=== PATIENT | male | born 1970 | race Caucasian/White ===

== ENCOUNTER 2021-01-28 16:04 | Emergency (ER) | payer MEDICAID, SELFPAY ==
--- NOTE | ~2021-01-28 | XR_ITS ---
EXAMINATION: XR CHEST CLINICAL INFORMATION: Chest pain COMPARISON: None TECHNIQUE: Frontal view of the chest was obtained. FINDINGS: Normal symmetric lung volumes. No parenchymal consolidation. No pleural effusion. No pneumothorax. Cardiomediastinal silhouette and pulmonary vascularity are within normal limits. No acute osseous abnormalities. XR/XR chest 1V IMPRESSION: Unremarkable examination.
--- NOTE | ~2021-01-28 | CT_ITS ---
EXAMINATION: CT ANGIOGRAM CHEST WITH AND WITHOUT CONTRAST (CT PULMONARY ANGIOGRAM FOR PE) CLINICAL INFORMATION: Elevated D-dimer. Question pulmonary embolism. COMPARISON: Chest radiograph done earlier the same day. TECHNIQUE: Prior to contrast administration, noncontrast localization images were obtained. Subsequently, multidetector volumetric imaging was performed from the thoracic inlet to below the diaphragms following the administration of 71 mL Omnipaque 350 intravenous contrast. No contrast reaction reported. Sagittal, coronal, and MIP oblique sagittal reformatted images were obtained on the CT workstation, uploaded to PACS, and reviewed. This CT examination was performed using dose optimization techniques as appropriate, variously including the following: *Automated exposure control. *Adjustment of mA and/or kV according to patient size (this includes techniques or standardized protocols for targeted exams where dose is matched to indication/reason for exam; i.e. extremities or head). *Use of iterative reconstruction technique. Total exam dose-length product 359 mGy-cm. FINDINGS: QUALITY OF STUDY/CONTRAST BOLUS: Satisfactory. PULMONARY ARTERIES: No central or segmental pulmonary emboli. THORACIC AORTA: No aneurysm or dissection. LUNG: Within the medial aspect of the left lung apex there is a pleural-based, spiculated mass measuring 1.6 x 2.3 x 1.7 cm (AP x ML x CC). There is a noncalcified right middle lobe pulmonary nodule measuring 0.8 cm (axial image 259/501). There is an irregular, spiculated subpleural nodule along the right major fissure measuring up to 1.0 cm (axial image 242/501). There are additional bilateral pulmonary nodules measuring up to 0.2 cm. No confluent airspace consolidation. PLEURA: No pleural effusion or pneumothorax. MEDIASTINUM: No cardiomegaly. No pericardial effusion. Significantly enlarged left hilar lymph nodes with the largest anteriorly measuring up to 3.6 x 2.8 cm. Enlarged superior mediastinal lymph nodes with the largest anterior to the left mainstem bronchus measuring 1.8 x 2.8 cm. Enlarged right hilar lymph node measuring up to 1.8 x 1.7 cm. No evidence of septal bowing or right heart strain. CHEST WALL/AXILLA: No axillary or internal mammary lymphadenopathy. OSSEOUS STRUCTURES: No acute or suspicious osseous abnormality. UPPER ABDOMEN: Mild asymmetric thickening of the left adrenal gland. Status post cholecystectomy. Otherwise, the visualized upper abdominal structures are unremarkable. No reflux of contrast into the hepatic veins to suggest elevated right heart pressures. CT/CT angio chest PE protocol IMPRESSION: 1. No acute pulmonary embolism. 2. Irregular, spiculated pleural-based mass within the medial aspect of the left lung apex measuring up to 2.3 cm. Findings are concerning for a neoplastic lesion. Additional irregular, spiculated subpleural nodule along the right major fissure measuring up to 1.0 cm. Right middle lobe 0.8 cm pulmonary nodule. Multiple additional bilateral 0.2 cm pulmonary nodules. 3. Significantly enlarged left hilar and superior mediastinal lymphadenopathy as well as slightly less prominent right hilar lymphadenopathy, concerning for metastatic spread of disease. 4. Mild asymmetric thickening of the left adrenal gland. Given the possibility of a primary pulmonary neoplasm, metastatic disease could be considered. VTE: Negative. This critical result was discussed with LYSSA Tim at 7:08 PM on 01/28/2021 and it was ascertained that the content and urgency of the report was understood at the time of direct communication.
[2021-01-28 16:10] VITALS: BP 157/96; PULSE 82; RESP 16; TEMP 36.7; O2SAT 98; BMI 32.1
--- NOTE | 2021-01-28 16:17 | ECG_ITS ---
Test Reason : CHEST PAIN Blood Pressure : / mmHG Vent. Rate : 075 BPM Atrial Rate : 075 BPM P-R Int : 160 ms QRS Dur : 076 ms QT Int : 370 ms P-R-T Axes : 052 -01 034 degrees QTc Int : 413 ms Normal sinus rhythm Normal ECG No previous ECGs available Referred By: Generic ED Physician Electronically Signed By:OBDULIO AGUILAR
[2021-01-28 17:06] LABS: MANUAL DIFF FLAG NO
[2021-01-28 17:07] LABS: Basophils Absolute Auto 0.1 X10*3/uL (0.0-0.2); Basophils Percent Auto 0.7 % (0-2); Eosinophils Absolute Auto 0.4 X10*3/uL (0.0-0.4); Eosinophils Percent Auto 5.6 % (0-4); Hematocrit 42.7 % (42-52); Hemoglobin 14.4 g/dl (14.0-18.0); Imm Gran Abs Auto 0.02 X10*3/uL (0.00-0.03); Imm Gran Pct Auto 0.3 % (0.0-0.4); Lymphocytes Absolute Auto 2.4 X10*3/uL (1.2-4.9); Lymphocytes Percent Auto 31.2 % (20-40); Mean Corpuscular HGB Conc 33.7 g/dl (31.0-36.0); Mean Corpuscular Hemoglobin 29.3 pg (27.0-33.0); Mean Corpuscular Volume 86.8 fL (80-98); Mean Platelet Volume 11.4 fL (9.4-12.4); Monocytes Absolute Auto 0.7 X10*3/uL (0.1-1.2); Monocytes Percent Auto 8.6 % (2-11); Neutrophils Absolute Auto 4.1 X10*3/uL (2.0-8.3); Neutrophils Percent Auto 53.6 % (45-73); Platelet Count 254 X10*3/uL (160-400); Red Blood Count 4.92 X10*6/uL (4.60-5.80); Red Cell Distribution Width 13.7 % (11.0-16.0); White Blood Count 7.7 X10*3/uL (4.8-10.8)
[2021-01-28 17:11] VITALS: BP 127/80; PULSE 77; RESP 16; TEMP 36.6; O2SAT 96
--- NOTE | 2021-01-28 17:20 | ED.CHESTPAIN ---
HPI - Chest Pain General Chief Complaint: Chest Pain Stated Complaint: chest pain Time Seen by Provider: 01/28/21 17:17 Source: patient Mode of arrival: ambulatory Limitations: no limitations History of Present Illness HPI narrative: Patient presents to the ED for right-sided chest pain that occurred yesterday intermittently. Patient states right-sided chest pain occurred after trying to climb up a truck and overusing his right upper extremity. Patient denies any shortness of breath, coughing up blood, fever, chills, swelling of lower extremity, recent trauma, recent surgery, history of drug use, history of family history of heart attack less than 50, history of blood clots, or any history of estrogen hormone use. Patient presently denies any chest pain. Patient states he last had chest pain around 08:00 this morning. Related Data Allergies Allergy/AdvReac Type Severity Reaction Status Date / Time No Known Allergies Allergy Unverified 07/27/20 17:03 [No Known Allergies*] Review of Systems Review of Systems: Yes all other systems are reviewed and are negative Constitutional: Constitutional: Reports as per HPI and Reports no additional constitutional complaints Eyes: Eyes: Reports as per HPI and Reports no additional eye complaints ENT: Reports system reviewed and no additional complaints, except as documented and Reports as per HPI Cardiovascular: Cardiovascular: Reports as per HPI, Reports no additional cardiovascular complaints and Reports chest pain Respiratory: Respiratory: Reports as per HPI and Reports no additional respiratory complaints Gastrointestinal: Gastrointestinal: Reports as per HPI and Reports no additional gastrointestinal complaints Genitourinary: Genitourinary: Reports no additional male genitourinary complaints and Reports as per HPI Musculoskeletal: Musculoskeletal: Reports no additional musculoskeletal complaints and Reports as per HPI Neurologic: Reports system reviewed and no additional complaints, except as documented and Reports as per HPI Psychiatric: Psychiatric: Reports no additional psychiatric complaints and Reports as per HPI PMF Past Medical History Medical History (Updated 01/29/21 @ 00:01 by Background Julienne) DVT (deep venous thrombosis) Non-Hodgkin lymphoma in remission Thrombosis Social History Social History Alcohol intake: never Smoking Status: Current every day smoker Use of substances other than those prescribed or required for medical reasons: No Advance Directives: No Advance Directives Information Provided: No Physical Exam Vital Signs: Vital Signs: Last Vital Signs Temp 98 F 01/28/21 18:00 Pulse 74 01/28/21 18:00 Resp 16 01/28/21 18:00 BP 137/88 01/28/21 18:00 Pulse Ox 96 01/28/21 18:00 Body Mass Index 32.1 Const: General: cooperative, healthy appearing, comfortable, no acute distress, well developed, alert, awake and Physically active Orientation/consciousness: patient oriented x3 HENMT: Head: Yes normal to inspection, Yes No palpable skull fracture present, Yes normocephalic, Yes atraumatic and No abrasion Eyes: General: appearance normal, both eyes and all related structures Neck: Neck: Yes normal visual inspection, Yes full ROM, Yes no lymphadenopathy, Yes no meningeal signs, Yes trachea midline, Yes supple and No tender Chest: Other: Positive for right-sided chest pain on range of motion of right upper extremity. Chest palpation & inspection: normal inspection of the chest and abnormal palpation of chest wall Resp: Effort & Inspection: normal respiratory effort and able to speak in complete sentences Auscultation: clear to auscultation bilaterally Cardio: Jugular venous distension: no JVD Heart sounds: S1 normal heart sound present and S2 normal heart sound present GI: Inspection: Yes normal to inspection and No abdominal wall ecchymosis Palpation (GI): Soft to palpation, not firm, nontender, no guarding and not rigid : General: No CVA tenderness Back/Spine/Pelvis: Back: no CVA tenderness, No CVA tenderness and No back tenderness Skin: General skin exam: no rashes or lesions noted and elasticity normal Neuro: General: patient oriented x3, no meningeal signs and CN's II-XI intact bilaterally Cranial nerves: Yes CN's II-XII intact bilaterally Extrem: Other: Lower extremity negative for any swelling, pitting edema, redness, or calf tenderness. General: Yes normal to inspection and Yes full ROM Psych: Appearance: grossly normal, well kempt and not disheveled Course Course Course Narrative: Presently patient denies any distress. Patient presently reading Bible. Due to age patient will have a cardiac evaluation and due to pain being on right-side will also do D-dimer to make sure patient risk for PE. Chest x-ray will be ordered. Reevaluation(s) Reevaluation #1: Patient's EKG came back normal. Troponin is negative. Chest x-ray normal. D-dimer came back slightly elevated at 220 which could be slightly negative due to it being less than 230 as per protocol, but due to patient stating right-sided chest pain and increasing D-dimer from from last year patient will have chest CTA and COVID swab sent. Patient presently asymptomatic Time: 18:06 Reevaluation #2: Chest CT scan came back negative for PE. COVID swab came back negative. Chest CT shows possible metastatic cancer. Patient was informed of this CT scan results. Patient informed the importance of close follow-up with his PCP. Time: 19:49 MDM - Chest Pain MDM Narrative Medical decision making narrative: Chest pain. Lab Data Result diagrams: 01/28/21 17:00 01/28/21 17:00 Labs: Lab Results 01/28/21 01/28/21 01/28/21 Range/Units 17:00 17:00 17:00 WBC 7.7 (4.8-10.8) X10*3/uL RBC 4.92 (4.60-5.80) X10*6/uL Hgb 14.4 (14.0-18.0) g/dl Hct 42.7 (42-52) % MCV 86.8 (80-98) fL MCH 29.3 (27.0-33.0) pg MCHC 33.7 (31.0-36.0) g/dl RDW 13.7 (11.0-16.0) % Plt Count 254 (160-400) X10*3/uL MPV 11.4 (9.4-12.4) fL Immature Gran % (Auto) 0.3 (0.0-0.4) % Neut % (Auto) 53.6 (45-73) % Lymph % (Auto) 31.2 (20-40) % Irion % (Auto) 8.6 (2-11) % Eos % (Auto) 5.6 H (0-4) % Baso % (Auto) 0.7 (0-2) % Lymph # (Auto) 2.4 (1.2-4.9) X10*3/uL Irion # (Auto) 0.7 (0.1-1.2) X10*3/uL Eos # (Auto) 0.4 (0.0-0.4) X10*3/uL Baso # (Auto) 0.1 (0.0-0.2) X10*3/uL Abs Immat Gran (auto) 0.02 (0.00-0.03) X10*3/uL Absolute Neuts (auto) 4.1 (2.0-8.3) X10*3/uL Absolute Nucleated RBC 0.000 (0.0-0.012) X10*3/uL Nucleated RBC % (auto) 0.0 (0.0-0.2) /100WBC PT 12.1 (10.8-13.0) SEC INR 1.0 (0.9-1.1) APTT 31.1 (24.1-38.0) SEC D-Dimer 220 NG/ML Hold Blue Top SEE NOTE Sodium 140 (135-145) mmol/L Potassium 4.4 (3.3-5.1) mmol/L Chloride 104 (96-108) mmol/L Carbon Dioxide 25 (22-29) mmol/L Anion Gap 15 (12-20) BUN 18 H (9-16) mg/dL Creatinine 1.07 (0.5-1.4) mg/dL Estim Creat Clear Calc 102.6 Estimated GFR > 60 Random Glucose 71 (60-115) mg/dL Calcium 9.6 (8.4-10.2) mg/dL Troponin I High Sens (<3.5-35.0) ng/L COVID-19 ([facility]) (Negative) COVID-19 Clin Com 01/28/21 01/28/21 Range/Units 17:00 18:21 WBC (4.8-10.8) X10*3/uL RBC (4.60-5.80) X10*6/uL Hgb (14.0-18.0) g/dl Hct (42-52) % MCV (80-98) fL MCH (27.0-33.0) pg MCHC (31.0-36.0) g/dl RDW (11.0-16.0) % Plt Count (160-400) X10*3/uL MPV (9.4-12.4) fL Immature Gran % (Auto) (0.0-0.4) % Neut % (Auto) (45-73) % Lymph % (Auto) (20-40) % Irion % (Auto) (2-11) % Eos % (Auto) (0-4) % Baso % (Auto) (0-2) % Lymph # (Auto) (1.2-4.9) X10*3/uL Irion # (Auto) (0.1-1.2) X10*3/uL Eos # (Auto) (0.0-0.4) X10*3/uL Baso # (Auto) (0.0-0.2) X10*3/uL Abs Immat Gran (auto) (0.00-0.03) X10*3/uL Absolute Neuts (auto) (2.0-8.3) X10*3/uL Absolute Nucleated RBC (0.0-0.012) X10*3/uL Nucleated RBC % (auto) (0.0-0.2) /100WBC PT (10.8-13.0) SEC INR (0.9-1.1) APTT (24.1-38.0) SEC D-Dimer NG/ML Hold Blue Top Sodium (135-145) mmol/L Potassium (3.3-5.1) mmol/L Chloride (96-108) mmol/L Carbon Dioxide (22-29) mmol/L Anion Gap (12-20) BUN (9-16) mg/dL Creatinine (0.5-1.4) mg/dL Estim Creat Clear Calc Estimated GFR Random Glucose (60-115) mg/dL Calcium (8.4-10.2) mg/dL Troponin I High Sens 3.6 (<3.5-35.0) ng/L COVID-19 ([facility]) Negative (Negative) COVID-19 Clin Com See Note ECG Data ECG #1: Interpretation: Normal sinus rhythm. Normal EKG. Lipase 75. Pr interval 160. QRS 76. QTC 413. Discharge Plan Discharge Clinical Impression: Atypical chest pain Patient Disposition: Home, Self-Care Instructions: Chest Pain (ED) Additional Instructions: Return to the ED immediately for any chest pain, shortness of breath, dizziness, weakness, calf pain, coughing up blood, fever, chills, or any other concerning symptoms. Chest CT came back positive for left lung mass. Recommend close follow-up with the PCP or call referred oncologist Dr. Victor Referrals: [facility] [Primary Care Provider] - 2 days (Lung mass. Needs further workup) Manuel Victor MD [Physician] - 2 days (Chest CT shows lung mass with lymphadenopathy involvement. Needs close follow-up) Interventions: ED Discharge Assessment Last Done: 01/28/21 20:04 Discharge Date/Time: 01/28/21 20:05 Print Language: Indonesian
[2021-01-28 17:31] LABS: Anion Gap 15 (12-20); Blood Urea Nitrogen 18 mg/dL (9-16); Calcium 9.6 mg/dL (8.4-10.2); Carbon Dioxide 25 mmol/L (22-29); Chloride 104 mmol/L (96-108); Creatinine Clr Calc Pharmacy 102.6; Estimated Glomerular Filt Rate > 60; Glucose Random 71 mg/dL (60-115); Potassium 4.4 mmol/L (3.3-5.1); Sodium 140 mmol/L (135-145)
[2021-01-28 17:35] LABS: Prothrombin Time 12.1 SEC (10.8-13.0)
[2021-01-28 17:36] LABS: Troponin-I High Sensitivity 3.6 ng/L (<3.5-35.0)
[2021-01-28 17:38] LABS: D Dimer 220 NG/ML; Partial Thromboplastin Time 31.1 SEC (24.1-38.0)
[2021-01-28 18:00] VITALS: BP 137/88; PULSE 74; RESP 16; TEMP 36.6; O2SAT 96
[2021-01-28 18:45] LABS: COVID-19 Test Negative (Negative); IDNOW Serial# 9DD0AD1C
== END 2021-01-28 20:05 | disposition home or self-care (01) ==
PROVIDERS: Physician Assistant; Emergency Provider Internal Medicine
DX: R07.89 Other chest pain (principal); Z20.822 Contact with and (suspected) exposure to COVID-19; Z86.718 Personal history of other venous thrombosis and embolism; F17.200 Nicotine dependence, unspecified, uncomplicated; R91.8 Other nonspecific abnormal finding of lung field
CPT/HCPCS: 36415; 71045; 71275; 80048; 84484; 85025; 85379; 85610; 85730; 87635; 93005; 99284; 99285; Q9967

== ENCOUNTER → 2021-02-02 08:57 | Outpatient (BNVA) | payer MEDICAID, SELFPAY | PROVIDERS: Visit Provider Surgery | DX: R59.0 Localized enlarged lymph nodes (principal); R91.8 Other nonspecific abnormal finding of lung field | CPT/HCPCS: 99212 ==

== ENCOUNTER 2021-02-05 10:20 | Day surgery (SDC) | payer MEDICAID, SELFPAY ==
[2021-02-05] VITALS (8 sets, daily range): BP systolic 101–131; BP diastolic 71–84; PULSE 70–89; RESP 16–20; TEMP 36.1–36.3; O2SAT 92–97; BMI 32.3
--- NOTE | ~2021-02-05 | XR_ITS ---
EXAMINATION: XR CHEST CLINICAL INFORMATION: Post left lung biopsy COMPARISON: Previous chest x-ray and chest CTA 01/28/2021 TECHNIQUE: Frontal view of the chest was obtained. FINDINGS: The heart does not appear enlarged. The left pulmonary hilum is prominent corresponding to known left hilar lymphadenopathy. Hilar and mediastinal contours are otherwise unremarkable. There is a small left upper lobe nodule adjacent to the spine measuring 1.5 cm that is unchanged. The lungs are otherwise clear. There is no pleural effusion or pneumothorax. Bony structures are unremarkable. XR/XR chest 1V IMPRESSION: No pneumothorax post left biopsy.
[2021-02-05] MEDS: Lactated Ringers 1,000 ML 50 ML IV (11:03)
--- NOTE | 2021-02-05 11:16 | HO.ANESPROP2 ---
[facility] Active Problems Active Problems: All Active Problems (Updated 02/02/21 @ 10:23 by Celso Toussaint MD) Mediastinal lymphadenopathy (Acute) Lung mass (Acute) Past Medical History Medical History DVT (deep venous thrombosis) Mass of left submandibular region Non-Hodgkin lymphoma in remission Thrombosis Surgical History Surgical History History of partial surgical removal of colon Hx of splenectomy Social History Social History (Updated 01/31/21 @ 13:07 by Katrina Ewing) Alcohol intake: former Smoking Status: Former smoker Use of substances other than those prescribed or required for medical reasons: No Advance Directives: No Advance Directives Information Provided: No Advance Directives on File: No Meds Allergies Allergy/AdvReac Type Severity Reaction Status Date / Time No Known Allergies Allergy Verified 02/05/21 10:31 [No Known Allergies*] Active Medications: Current Medications Generic Name Dose Route Start Last Admin Trade Name Stacy PRN Reason Stop Dose Admin Lactated Ringer's 1,000 mls @ 50 mls/hr 02/05/21 07:45 02/05/21 11:03 Lr IV 50 mls/hr .Q20H ZOYA Administration Home Medications Medication Instructions Recorded Confirmed Last Taken Type No Known Home Meds 01/31/21 02/02/21 Unknown History Exam Exam Date and Time: February 05, 2021 1116 Height,Weight and Vital Signs: Height 5 ft 11 in Weight 105.233 kg Last Vital Signs Temp 97.4 F 02/05/21 10:41 Pulse 89 02/05/21 10:41 Resp 16 02/05/21 10:41 BP 131/84 02/05/21 10:41 Pulse Ox 96 02/05/21 10:41 Airway Mallampati Class: II Neck ROM: Full Loose/Missing/Broken Teeth: Yes (left lower molar) Heart: RRR Lungs: NL Assessment and Plan Assessment Anesthesia Assessment: Anesthesia Plan Discussed and Chart Reviewed Final Anesthetic Review NPO: Yes ASA Class: II Final Preanesthetic Review: No Changes in Pt Med Stat, Meds/Allgs Chart Reviewed, Consent Obtained/Reviewed and Anes Risks/Benef Reviewed Patient Risk: Low Procedure Risk: Low Anesthetic Plan Anesthetic Plan: GA Disposition: Standard PACU
--- NOTE | 2021-02-05 11:20 | P.HPSUR_ITS ---
Pre-Procedural Eval Section A The patient is an INPATIENT: No The History & Physical has been completed within 30 days and I have reviewed it.: No Section B Chief Complaint: enlarged lymph nodes,abnormal findings Details of Present Illness: 51 y/o man with h/o lymphoma presenting to the ER with chest pain. CTA neg PE, but demonstrated ALFREDO mass and lymphadenopathy. Relevant Family History (Specify if Yes): No Relevant Social History: None Present Medications: see Short Stay Collaborative assessment Medical History: Significant History (Lymphoma, DVT) History of Previous Operations: No relevant previous surgery Allergies: Allergies Allergy/AdvReac Type Severity Reaction Status Date / Time No Known Allergies Allergy Verified 02/05/21 10:31 [No Known Allergies*] Review of Systems Sugical H&P ROS: Negative: Constitution, Cardiovascular, Respiratory, Neurological, Psychiatric, Hem-Onc, Allergic/Immunologic, Gastrointestinal and Genitourinary Exam Surgical H&P Exam: Normal: HEENT, Normal: Heart, Normal: Lungs, Normal: Extrem ities, Normal: Abdomen, Normal: Skin and Normal: Neurological Plan Diagnosis/Plan: Unchanged I have reviewed the history and physical and performed a pertinent physical examination on my patient. No changes have occurred unless specified.
--- NOTE | 2021-02-05 13:10 | PM.OP ---
Brief Operative Note Date of Service: 02/05/21 Pre-op diagnosis: lung mass, lymphadenopathy Post-op diagnosis: other (cancer) Procedure: EBUS with TBNA station 4R, 4L, 11L, bronchoscopy with brushing,washings and transbronchial biopsies ALFREDO Surgeon: Kale Izquierdo MD Anesthesia: GETA Estimated blood loss (mL): 0 Pathology: other (ALFREDO transbronchial bx, TBNA 4R,4L, 11L) Condition: stable Disposition: same day
--- NOTE | 2021-02-05 20:48 | OP_ITS ---
SURGEON: Kale Izquierdo MD PREOPERATIVE DIAGNOSIS: POSTOPERATIVE DIAGNOSIS: Cancer. PROCEDURE PERFORMED: Endobronchial ultrasound bronchoscopy with transbronchial needle aspirations of station 4R, 4L and 11L along with bronchoscopy with brushings, washings and transbronchial biopsies. ESTIMATED BLOOD LOSS: 0. COMPLICATIONS: ANESTHESIA: General endotracheal anesthesia. ASSISTANTS: SPECIMENS: WOUND CLASSIFICATION: ASA 2. PREOPERATIVE DIAGNOSES: Lymphadenopathy and lung mass. PATHOLOGY SENT: 1. Left upper lobe transbronchial biopsies. 2. Transbronchial needle aspiration from station 4R, 4L and 11L. 3. Washings and brushings also sent. CONDITION: Stable. DESCRIPTION OF PROCEDURE: After the patient was adequately sedated and intubated, flexible digital bronchoscope with endobronchial ultrasound (EBUS) was introduced into the endotracheal tube to the level of the main kaylene. Lidocaine was administered at that point. Using the ultrasound guidance, the different stations were evaluated. The patient appeared to have a very small, 0.5 cm to less 4R lymph node, appeared to have a normal follicle without any abnormalities. The patient had a larger about 3.5 cm station 4L, which was irregular and bulky. In addition to that, station 7 was present, measuring about 1.5 cm but primarily from the left side further into the airways. The patient also did have some lymph nodes noted in station 11L and 10L. Those were measuring 0.5 cm in size, appeared to be slightly bulky. Using the ultrasound guided transbronchial needle, aspirations were initially done in station 4R. Specimen sent to cytology. After the 2 passes, the bronchoscope was navigated to station 4 L where 4 passes were done, documented the presence of malignant cells. After that, the bronchoscope was navigated to station 11L where 3 passes were collected. No significant bleeding noted. The endobronchial ultrasound bronchoscopy was then removed and replaced with the regular bronchoscopy. The bronchial and tracheal tree were examined up to the subsegmental level without any evidence of any endobronchial lesions or masses. Did have some erythema and some narrowing of the airways in the left upper lobe, but no obvious malignancy. A cytologic brush was introduced into the left upper lobe and sent to cytology. Bronchial washings were also collected. Using forceps, transbronchial biopsies were collected from the left upper lobe. No significant bleeding. Epinephrine was not used. The bronchoscope was then removed. The total endoscopic time approximately 45 minutes. The patient tolerated the procedure well. INTERPRETATION: 1. Transbronchial biopsies of the left upper lobe. 2. Transbronchial needle aspirations with the EBUS at 3 stations including 4R, 4L and station 11L. 3. Bronchial washings from the left upper lobe and 4 bronchial brushings from the left upper lobe, both for cytology. Chest x-ray postop was okay. MD ANDRADE Fuller/[place] / [id number]
== END 2021-02-05 14:46 | disposition home or self-care (01) ==
PROVIDERS: Visit Provider Hospitalist
PROC: (CPT 31623; principal; 2021-02-05 11:30)
DX: C77.1 Secondary and unspecified malignant neoplasm of intrathoracic lymph nodes (principal); C34.90 Malignant neoplasm of unspecified part of unspecified bronchus or lung; C85.90 Non-Hodgkin lymphoma, unspecified, unspecified site; F17.210 Nicotine dependence, cigarettes, uncomplicated
CPT/HCPCS: 31623; 31628; 31653; 36415; 71045; 88112; 88172; 88173; 88177; 88184; 88185; 88300; 88305; 88341; 88342; J0171; J1100; J2250; J2405; J3010

== ENCOUNTER 2021-02-06 11:16 | Outpatient (REF) | payer MEDICAID, SELFPAY ==
--- NOTE | ~2021-02-06 | PE_ITS ---
EXAMINATION: Fluorine-18 FDG PET/CT Scan CLINICAL INDICATION: Initial treatment management. Left lung mass. PROCEDURE: 62 minutes following the intravenous administration of 18.1 mCi of fluorine 18 FDG, images from the base of the skull to the mid thighs were obtained using a combined PET/CT scanner with CT scan based attenuation correction. No oral contrast was administered. No intravenous contrast was administered. Transverse, coronal, sagittal, and volume reconstruction projections were obtained. The patient's blood glucose as determined by a finger stick, was 93 mg/dl immediately prior to injection. Total CT exam dose-length product 816.46 mGy-cm * These CT images were obtained using dose optimization techniques as appropriate, variously including the following: Automated exposure control * Adjustment of mA and/or kV according to patient size (this includes techniques or standardized protocols for targeted exams where dose is matched to indication/reason for exam; i.e. extremities or head) * Use of iterative reconstruction technique COMPARISON: No previous PET/CT scan is available for comparison. CT angiogram of the chest dated 01/28/2021 is available for comparison. FINDINGS: (Slice numbers described in this report are numbered superiorly to inferiorly with slice #1 in the head) NECK AND VISUALIZED HEAD: There is a small focus of mildly increased FDG activity present in the right neck, probably in the right carotid artery and likely due to inflammatory plaque. No definite corresponding enlarged lymph node at this site is visualized on these nondiagnostic CT images. No other foci of abnormal FDG activity are present in the neck or visualized head. All the other activity in this region appears physiological. THORAX: There is an FDG avid medial pleural-based left upper lobe pulmonary nodule that shows SUVmax 4.0, slice 65/267. On the CT images this measures 2.0 x 1.7 cm in largest transverse dimensions, and approximately 2.8 cm cephalocaudad. There is a 0.9 x 0.5 cm fissural nodule in the major interlobar fissure of the right lung at the level of the origin of the right middle lobe bronchi, slice 93/267. There is an additional 0.8 lateral right middle lobe pulmonary nodule, slice 98/267 too small to be characterized on the FDG PET images. Additional small subcentimeter nodules visualized on the diagnostic 01/28/2021 CT scan are not well visualized on these nondiagnostic CT images. All of these are much too small to be characterized on the FDG PET images. Prominent FDG avid mediastinal lymphadenopathy is present. The most intense focus there is in the left lower paratracheal region extending into the left perihilar region showing SUVmax 6.0, slice 79/267 and measuring approximately 2.3 x 1.4 cm in largest transverse dimensions on the CT images. Additional FDG avid lymphadenopathy is present in the AP window and an adjacent left upper lobe proximal peribronchial foci, the most prominent of these an FDG avid AP window lymph node showing SUVmax 5.5, slice 78/267 and measuring 3.7 x 2.5 cm in largest transverse dimensions on the CT images. There is a weakly FDG avid subcentimeter subcarinal lymph node visualized in slice 85/267 and a few additional subcentimeter mediastinal lymph nodes are present 2 small to be characterized on the FDG PET images. No additional foci of abnormal FDG activity are present in the chest. There is no pleural or pericardial fluid, or pneumothorax. ABDOMEN AND PELVIS: The liver is unremarkable. The spleen is not visualized and the gallbladder has been resected with several metallic surgical clips present in the gallbladder bed. The kidneys, adrenal glands, and pancreas are unremarkable. Additional metallic clips are are present immediately anterior to the abdominal aorta at the L2-L3 level and in the anterior aspect of the transverse colon in the left midabdomen. The pelvic organs are unremarkable. There is FDG avid right external iliac angie chain and adjacent right pelvic sidewall lymphadenopathy at the level of the acetabulum and immediately superior, SUVmax 4.1 slice 227/267. On these nondiagnostic CT images this cannot be from adjacent external iliac vascularity. There is an FDG avid right inguinal lymph node showing SUVmax 4.5, slice 243/267 measuring 3.0 x 2.0 cm in largest transverse dimensions. There is no additional retroperitoneal, mesenteric, pelvic or inguinal lymphadenopathy. MUSCULOSKELETAL: No foci of abnormal FDG activity are present in the osseous structures. There are mild degenerative changes in the spine but no suspicious sclerotic or lytic lesions are visualized. VASCULAR: Vascular calcifications including some coronary calcifications are noted. PET/PET CT fusion skull to thigh IMPRESSION: 1. A medial pleural-based left apical pulmonary nodule is most likely malignant. 2. Prominent FDG avid mediastinal and left hilar lymphadenopathy is present and is likely due to metastatic malignant disease. 3. FDG avid right external iliac and right inguinal lymphadenopathy is strongly suspicious for additional metastatic disease. 4. A focus of FDG activity in the right cervical region appears to be in the right carotid artery and probably represents inflammatory plaque. However, an immediately adjacent cervical level 2A FDG avid lymph node might also be responsible for this focus. This could be further characterized with IV contrast enhanced CT imaging, if clinically indicated. 5. No additional abnormalities suspicious for other metastatic or malignant lesions are present. 6. 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 7. Status post cholecystectomy.
== END 2021-02-06 11:17 | disposition home or self-care (01) ==
LOC: HO.PET 11:16
PROVIDERS: Visit Provider Internal Medicine
DX: Z13.89 Encounter for screening for other disorder (principal)

== ENCOUNTER → 2021-02-08 09:26 | Outpatient (BNVA) | payer MEDICAID, SELFPAY | PROVIDERS: Visit Provider Hospitalist | DX: R59.0 Localized enlarged lymph nodes (principal); R91.8 Other nonspecific abnormal finding of lung field; C34.90 Malignant neoplasm of unspecified part of unspecified bronchus or lung | CPT/HCPCS: 99202 ==

== ENCOUNTER 2021-02-14 07:55 | Outpatient (REF) | payer MEDICAID, SELFPAY ==
--- NOTE | ~2021-02-14 | US_ITS ---
EXAMINATION: ULTRASOUND-GUIDED LYMPH NODE BIOPSY CLINICAL INFORMATION: Lung cancer and history of lymphoma. Enlarged right inguinal lymph node. COMPARISON: Previous PET/CT scan January 2021 TECHNIQUE: Procedure and risks and benefits including bleeding and infection were discussed with the patient and informed consent was obtained. The right groin was prepped and draped in the usual sterile fashion. The skin and soft tissues were anesthetized with 1% lidocaine plain. Using ultrasound guidance and a coaxial system, access to an enlarged right inguinal lymph node was obtained. 4 20-gauge core biopsies were obtained and placed in formalin and flow cytometry solution. FINDINGS: There is an enlarged right inguinal lymph node. This measures 3 x 4.2 x 2 cm in dimension. This is diffusely hypoechoic and has a slitlike hilum with both hilar and cortical flow. US/US biopsy lymph node IMPRESSION: Ultrasound-guided right inguinal lymph node biopsy.
--- NOTE | ~2021-02-14 | MR_ITS ---
EXAMINATION: MR BRAIN WITHOUT AND WITH CONTRAST CLINICAL INFORMATION: Lung carcinoma staging. COMPARISON: FDG PET/CT scan 02/06/2021. TECHNIQUE: Multiplanar MR imaging of the brain was performed without and with contrast. A total of 10 mL Gadavist was utilized for this examination. FINDINGS: Postcontrast images reveal no abnormal mass or enhancement within the intracranial compartment. No intracranial mass effect or midline shift. No abnormal extra-axial collection. Lateral and third ventricles are normal. No hydrocephalus. Midline structures including the cervicomedullary junction are normal. There is no acute territorial infarct. No pathological magnetic susceptibility artifact. Intracranial vascular flow voids are maintained. There is no mastoid or middle ear effusion. Mild to moderate paranasal sinus disease. Globes and orbits are symmetric. MR/MR head/brain wo/w con IMPRESSION: Unremarkable brain MRI. Specifically no evidence of intracranial metastatic disease.
[2021-02-14] MEDS: Lidocaine HCl 1 % MPF 5 ML VIAL SUBCUT (10:44)
== END 2021-02-14 07:56 | disposition home or self-care (01) ==
LOC: HO.MRI 07:55
PROVIDERS: Visit Provider Internal Medicine
DX: C34.90 Malignant neoplasm of unspecified part of unspecified bronchus or lung (principal); R59.0 Localized enlarged lymph nodes
CPT/HCPCS: 36415; 38505; 70553; 76942; 88184; 88185; 88300; 88305; 88341; 88342; A9585

== ENCOUNTER 2021-06-02 14:48 | Emergency (ER) | payer MEDICAID, SELFPAY ==
--- NOTE | ~2021-06-02 | XR_ITS ---
EXAMINATION: XR CHEST CLINICAL INFORMATION: Exposure to mold with respiratory symptoms. COMPARISON: 02/05/2021 TECHNIQUE: Frontal view of the chest was obtained. FINDINGS: The mass just below the level of the aortic arch in the left upper lobe is much better seen on the prior CT scan. No infiltrates or effusions are seen. No pneumothorax is seen. Heart size normal. No evidence of CHF. XR/XR chest 1V IMPRESSION: No acute intrathoracic disease.
[2021-06-02 14:53] VITALS: BP 184/103; PULSE 86; RESP 18; TEMP 36.3; O2SAT 98; BMI 29.9
--- NOTE | 2021-06-02 15:55 | ED_ITS ---
HPI - Chest Pain General Chief Complaint: Chest Pain Stated Complaint: MULT ISSUES Time Seen by Provider: 06/02/21 15:55 Source: patient Mode of arrival: ambulatory Limitations: no limitations History of Present Illness HPI narrative: Patient currently having laryngitis, feels that he has been exposed to mold. Patient currently denying chest pain. In addition complaining of tooth problem and feels that it is poisoning his body. Related Data Home Medications Medication Instructions Recorded Confirmed No Known Home Meds 01/31/21 02/08/21 Allergies Allergy/AdvReac Type Severity Reaction Status Date / Time No Known Allergies Allergy Verified 02/08/21 22:04 [No Known Allergies*] Review of Systems Constitutional: Constitutional: Reports no additional constitutional complaints Eyes: Eyes: Reports no additional eye complaints ENT: Denies dizziness Cardiovascular: Cardiovascular: Reports no additional cardiovascular complaints Respiratory: Respiratory: Reports as per HPI Gastrointestinal: Gastrointestinal: Reports no additional gastrointestinal complaints Musculoskeletal: Musculoskeletal: Reports no additional musculoskeletal co mplaints Integumentary/Breasts: Skin/Breast: Denies rash Neurologic: Reports system reviewed and no additional complaints, except as documented, Denies dizziness and Denies Sensory deficit (Neuro) Psychiatric: Psychiatric: Denies anxiety [facility] Past Medical History Medical History DVT (deep venous thrombosis) Mass of left submandibular region Non-Hodgkin lymphoma in remission Small cell lung cancer Thrombosis Surgical History History of partial surgical removal of colon Hx of splenectomy Social History Social History Alcohol intake: former Advance Directives: No Advance Directives Information Provided: No Physical Exam Vital Signs: Vital Signs: Last Vital Signs Temp 97.3 F 06/02/21 14:53 Pulse 86 06/02/21 14:53 Resp 18 06/02/21 14:53 BP 184/103 H 06/02/21 14:53 Pulse Ox 98 06/02/21 14:53 Body Mass Index 29.9 Const: Other: flat affect General: healthy appearing Nutritional Appearance: average body habitus Orientation/consciousness: oriented to person and patient oriented x3 Limitations: no limitations HENMT: Other: diffuse dental caries, no swelling no pus Head: Yes normal to inspection Ears: external ears normal General nose exam: Normal external nose present Mouth: Normal oral and palatal mucosa present and oropharynx normal Throat: Yes posterior oropharynx normal Eyes: General: appearance normal, both eyes and all related structures Neck: Other: supple Neck: Yes normal visual inspection Chest: Chest palpation & inspection: normal inspection of the chest Resp: Auscultation: clear to auscultation bilaterally Cardio: Jugular venous distension: no JVD Rate: regular rate Rhythm: regular rhythm Heart sounds: S1 normal heart sound present and S2 normal heart sound present GI: Inspection: Yes normal to inspection Palpation (GI): Soft to palpation, nontender and No hepatosplenomegaly present Auscultation: normal bowel sounds : General: Yes no CVA tenderness Back/Spine/Pelvis: Back: no CVA tenderness Skin: General skin exam: no rashes or lesions noted Neuro: General: oriented to person and patient oriented x3 Cranial nerves: Yes CN's II-XII intact bilaterally Motor exam (neuro): 5/5 motor strength present throughout Sensory Exam: No Sensory deficit (Neuro) Extrem: Other: bilateral edema Psych: Other: flat affect Course Reevaluation(s) Reevaluation #1: patient denies alcohol binge or tylenol use. He is on a lot of supplements, denies hepatitis risk factors. Will send hepatitis panel, advised to stop his supplements until liver enzymes are rechecked. Time: 17:31 [facility] - Chest Pain Lab Data Result diagrams: 06/02/21 16:18 06/02/21 16:18 Labs: Lab Results 06/02/21 06/02/21 06/02/21 Range/Units 16:12 16:18 16:18 WBC 10.7 (4.8-10.8) X10*3/uL RBC 4.44 L (4.60-5.80) X10*6/uL Hgb 13.9 L (14.0-18.0) g/dl Hct 40.7 L (42-52) % MCV 91.7 (80-98) fL MCH 31.3 (27.0-33.0) pg MCHC 34.2 (31.0-36.0) g/dl RDW 15.3 (11.0-16.0) % Plt Count 179 D (160-400) X10*3/uL MPV 11.5 (9.4-12.4) fL Immature Gran % (Auto) 1.0 H (0.0-0.4) % Neut % (Auto) 84.3 H (45-73) % Lymph % (Auto) 6.8 L (20-40) % Citrus % (Auto) 7.8 (2-11) % Eos % (Auto) 0.1 (0-4) % Baso % (Auto) 0.0 (0-2) % Lymph # (Auto) 0.7 L (1.2-4.9) X10*3/uL Citrus # (Auto) 0.8 (0.1-1.2) X10*3/uL Eos # (Auto) 0.0 (0.0-0.4) X10*3/uL Baso # (Auto) 0.0 (0.0-0.2) X10*3/uL Abs Immat Gran (auto) 0.11 H (0.00-0.03) X10*3/uL Absolute Neuts (auto) 9.0 H (2.0-8.3) X10*3/uL Absolute Nucleated RBC 0.000 (0.0-0.012) X10*3/uL Nucleated RBC % (auto) 0.0 (0.0-0.2) /100WBC Sodium (135-145) mmol/L Potassium (3.3-5.1) mmol/L Chloride (96-108) mmol/L Carbon Dioxide (22-29) mmol/L Anion Gap (12-20) BUN (9-16) mg/dL Creatinine (0.5-1.4) mg/dL Estim Creat Clear Calc Estimated GFR Random Glucose (60-115) mg/dL Calcium (8.4-10.2) mg/dL Total Bilirubin (0.0-1.0) mg/dL Direct Bilirubin (0.0-0.5) mg/dL AST (5-37) U/L ALT (0-40) U/L Alkaline Phosphatase (39-117) U/L B-Natriuretic Peptide 140 H (<100) pg/mL Total Protein (6.5-8.0) g/dL Albumin (3.5-5.0) g/dL Urine Color YELLOW Urine Appearance CLEAR Urine pH 6.0 (5.0-8.0) Ur Specific [place] 1.025 (1.005-1.025) Urine Protein TRACE (NEG-TRACE) MG/DL Urine Glucose (UA) NEG (NEG) MG/DL Urine Ketones NEG (NEG) MG/DL Urine Blood NEG (NEG) Urine Nitrite NEG (NEG) Ur Leukocyte Esterase NEG (NEG) 06/02/21 Range/Units 16:18 WBC (4.8-10.8) X10*3/uL RBC (4.60-5.80) X10*6/uL Hgb (14.0-18.0) g/dl Hct (42-52) % MCV (80-98) fL MCH (27.0-33.0) pg MCHC (31.0-36.0) g/dl RDW (11.0-16.0) % Plt Count (160-400) X10*3/uL MPV (9.4-12.4) fL Immature Gran % (Auto) (0.0-0.4) % Neut % (Auto) (45-73) % Lymph % (Auto) (20-40) % Citrus % (Auto) (2-11) % Eos % (Auto) (0-4) % Baso % (Auto) (0-2) % Lymph # (Auto) (1.2-4.9) X10*3/uL Citrus # (Auto) (0.1-1.2) X10*3/uL Eos # (Auto) (0.0-0.4) X10*3/uL Baso # (Auto) (0.0-0.2) X10*3/uL Abs Immat Gran (auto) (0.00-0.03) X10*3/uL Absolute Neuts (auto) (2.0-8.3) X10*3/uL Absolute Nucleated RBC (0.0-0.012) X10*3/uL Nucleated RBC % (auto) (0.0-0.2) /100WBC Sodium 144 (135-145) mmol/L Potassium 2.7 L D (3.3-5.1) mmol/L Chloride 102 (96-108) mmol/L Carbon Dioxide 33 H (22-29) mmol/L Anion Gap 12 (12-20) BUN 15 (9-16) mg/dL Creatinine 0.77 (0.5-1.4) mg/dL Estim Creat Clear Calc 138.1 Estimated GFR > 60 Random Glucose 106 D (60-115) mg/dL Calcium 8.8 D (8.4-10.2) mg/dL Total Bilirubin 0.8 (0.0-1.0) mg/dL Direct Bilirubin 0.3 (0.0-0.5) mg/dL AST 68 H (5-37) U/L ALT 115 H (0-40) U/L Alkaline Phosphatase 126 H (39-117) U/L B-Natriuretic Peptide (<100) pg/mL Total Protein 5.9 L (6.5-8.0) g/dL Albumin 3.6 (3.5-5.0) g/dL Urine Color Urine Appearance Urine pH (5.0-8.0) Ur Specific [place] (1.005-1.025) Urine Protein (NEG-TRACE) MG/DL Urine Glucose (UA) (NEG) MG/DL Urine Ketones (NEG) MG/DL Urine Blood (NEG) Urine Nitrite (NEG) Ur Leukocyte Esterase (NEG) Imaging Data Chest x-ray: Attestation: I personally reviewed and interpreted this imaging study as follows: Radiologist's impression: no infiltrate ECG Data ECG #1: Attestation: I personally reviewed and interpreted this ECG as follows: Interpretation: sinus rate of 80, no st or twave changes Discharge Plan Discharge Clinical Impression: Hepatitis Edema Qualifiers: Edema type: unspecified Qualified Code(s): R60.9 - Edema, unspecified Patient Disposition: Home, Self-Care Instructions: Edema (ED) Additional Instructions: follow up with your doctor regarding hepatitis panel and elevated liver enzymes, wear compression socks. Return for worsening symptoms Prescriptions: No Action No Known Home Meds RF: 0 Referrals: [facility] [Primary Care Provider] - 5 days
--- NOTE | 2021-06-02 16:01 | ECG_ITS ---
Test Reason : NUMNESS Blood Pressure : / mmHG Vent. Rate : 081 BPM Atrial Rate : 081 BPM P-R Int : 146 ms QRS Dur : 076 ms QT Int : 388 ms P-R-T Axes : 040 -03 -13 degrees QTc Int : 450 ms Normal sinus rhythm Possible Left atrial enlargement Left ventricular hypertrophy Abnormal ECG When compared with ECG of 28-JAN-2021 16:14, Non-specific change in ST segment in Inferior leads ST no longer elevated in Lateral leads Inverted T waves have replaced nonspecific T wave abnormality in Inferior leads Referred By: Isaiah Duggan Electronically Signed By:CAIT SANTA MD
[2021-06-02 16:22] LABS: MANUAL DIFF FLAG NO
[2021-06-02 16:23] LABS: Eosinophils Percent Auto 0.1 % (0-4); Hematocrit 40.7 % (42-52); Hemoglobin 13.9 g/dl (14.0-18.0); Imm Gran Abs Auto 0.11 X10*3/uL (0.00-0.03); Lymphocytes Absolute Auto 0.7 X10*3/uL (1.2-4.9); Lymphocytes Percent Auto 6.8 % (20-40); Mean Corpuscular HGB Conc 34.2 g/dl (31.0-36.0); Mean Corpuscular Hemoglobin 31.3 pg (27.0-33.0); Mean Corpuscular Volume 91.7 fL (80-98); Mean Platelet Volume 11.5 fL (9.4-12.4); Monocytes Absolute Auto 0.8 X10*3/uL (0.1-1.2); Monocytes Percent Auto 7.8 % (2-11); Neutrophils Percent Auto 84.3 % (45-73); Platelet Count 179 X10*3/uL (160-400); Red Blood Count 4.44 X10*6/uL (4.60-5.80); Red Cell Distribution Width 15.3 % (11.0-16.0); White Blood Count 10.7 X10*3/uL (4.8-10.8)
[2021-06-02 16:23] LABS: Glucose Urine UA NEG (NEG); Leukocyte Esterase Urine NEG (NEG); Nitrite Urine NEG (NEG); Specific Gravity - Urine 1.025 (1.005-1.025); Urine Blood NEG (NEG); Urine Ketones NEG (NEG); Urine Protein TRACE MG/DL (NEG-TRACE)
[2021-06-02 16:25] LABS: Appearance Urine CLEAR; Color Urine YELLOW
[2021-06-02 16:55] LABS: Alanine Aminotransferase 115 U/L (0-40); Albumin Level 3.6 g/dL (3.5-5.0); Alkaline Phosphatase 126 U/L (39-117); Anion Gap 12 (12-20); Aspartate Amino Transferase 68 U/L (5-37); Bilirubin Direct 0.3 mg/dL (0.0-0.5); Bilirubin Total 0.8 mg/dL (0.0-1.0); Blood Urea Nitrogen 15 mg/dL (9-16); Calcium 8.8 mg/dL (8.4-10.2); Carbon Dioxide 33 mmol/L (22-29); Chloride 102 mmol/L (96-108); Creatinine Clr Calc Pharmacy 138.1; Estimated Glomerular Filt Rate > 60; Glucose Random 106 mg/dL (60-115); Potassium 2.7 mmol/L (3.3-5.1); Sodium 144 mmol/L (135-145); Total Protein 5.9 g/dL (6.5-8.0)
[2021-06-02 16:57] LABS: B Type Natriuretic Peptide 140 pg/mL (<100)
[2021-06-04 03:47] LABS: HBc Num1 0.03 S/CO (0.00-0.79); HBsAGNum1 0.16 S/CO (0.00-0.99); Hepatitis B Core Antibody Nonreactive (Nonreactive); Hepatitis B Surface Antigen Negative (Negative)
[2021-06-04 03:54] LABS: ~HepC Num1 0.06 S/CO (0.00-0.79); ~Hepatitis B Surface Antibody REACTIVE (Nonreactive); ~Hepatitis C Antibody Nonreactive (Nonreactive)
[2021-06-06 12:17] LABS: Hepatitis A Antibody IgM 0.18 Index (0-0.79); ~Hepatitis A Antibody IgM Nonreactive (Nonreactive)
== END 2021-06-02 18:26 | disposition home or self-care (01) ==
PROVIDERS: Emergency Provider Emergency Medicine
DX: K75.9 Inflammatory liver disease, unspecified (principal); R60.0 Localized edema; R74.8 Abnormal levels of other serum enzymes; K02.9 Dental caries, unspecified; C34.90 Malignant neoplasm of unspecified part of unspecified bronchus or lung; Z86.718 Personal history of other venous thrombosis and embolism
CPT/HCPCS: 36415; 71045; 80048; 80076; 81003; 83880; 85025; 86704; 86706; 86709; 86803; 87340; 93005; 99283

== ENCOUNTER 2021-06-30 21:09 | Emergency (ER) | payer MEDICAID, SELFPAY ==
--- NOTE | 2021-06-30 | ECG_ITS ---
Test Reason : CHEST PAIN Blood Pressure : / mmHG Vent. Rate : 070 BPM Atrial Rate : 070 BPM P-R Int : 146 ms QRS Dur : 084 ms QT Int : 416 ms P-R-T Axes : 035 003 -25 degrees QTc Int : 449 ms Normal sinus rhythm Possible Left atrial enlargement Left ventricular hypertrophy Nonspecific T wave abnormality Abnormal ECG When compared with ECG of 02-JUN-2021 15:11, Nonspecific T wave abnormality now evident in Anterolateral leads Referred By: Generic ED Physician Electronically Signed By:JOHN FLORES
[2021-06-30 21:22] VITALS: BP 158/94; PULSE 75; RESP 16; TEMP 36.6; O2SAT 98; BMI 28.5
== END 2021-06-30 22:05 | disposition left against medical advice (07) ==
PROVIDERS: Emergency Provider Emergency Medicine
DX: R07.9 Chest pain, unspecified (principal); Z85.118 Personal history of other malignant neoplasm of bronchus and lung
CPT/HCPCS: 93005; 99282; 99283

== ENCOUNTER 2021-07-17 09:42 | Outpatient (REF) | payer MEDICAID, SELFPAY ==
[2021-07-17 10:48] LABS: MANUAL DIFF FLAG NO
[2021-07-17 10:59] LABS: Basophils Percent Auto 0.1 % (0-2); Hematocrit 36.3 % (42-52); Hemoglobin 12.2 g/dl (14.0-18.0); Imm Gran Abs Auto 0.33 X10*3/uL (0.00-0.03); Imm Gran Pct Auto 2.6 % (0.0-0.4); Lymphocytes Absolute Auto 1.5 X10*3/uL (1.2-4.9); Lymphocytes Percent Auto 11.8 % (20-40); Mean Corpuscular HGB Conc 33.6 g/dl (31.0-36.0); Mean Corpuscular Hemoglobin 30.8 pg (27.0-33.0); Mean Corpuscular Volume 91.7 fL (80-98); Mean Platelet Volume 12.3 fL (9.4-12.4); Monocytes Absolute Auto 0.3 X10*3/uL (0.1-1.2); Monocytes Percent Auto 2.2 % (2-11); NRBC Pct Auto 0.2 /100WBC (0.0-0.2); Neutrophils Absolute Auto 10.7 X10*3/uL (2.0-8.3); Neutrophils Percent Auto 83.3 % (45-73); Platelet Count 222 X10*3/uL (160-400); Red Blood Count 3.96 X10*6/uL (4.60-5.80); Red Cell Distribution Width 14.6 % (11.0-16.0); White Blood Count 12.9 X10*3/uL (4.8-10.8)
[2021-07-17 11:45] LABS: TSH reflex Free T4 1.05 uIU/mL (0.32-4.0)
[2021-07-17 12:14] LABS: ~HepC Num1 0.14 S/CO (0.00-0.79); ~Hepatitis C Antibody Nonreactive (Nonreactive)
[2021-07-17 12:21] LABS: Alanine Aminotransferase 212 U/L (0-40); Albumin Level 2.8 g/dL (3.5-5.0); Alkaline Phosphatase 491 U/L (39-117); Anion Gap 9 (12-20); Aspartate Amino Transferase 131 U/L (5-37); Bilirubin Total 1.3 mg/dL (0.0-1.0); Blood Urea Nitrogen 21 mg/dL (9-16); Calcium 8.5 mg/dL (8.4-10.2); Carbon Dioxide 41 mmol/L (22-29); Chloride 93 mmol/L (96-108); Cholesterol 186 mg/dL; Estimated Glomerular Filt Rate > 60; Glucose Random 174 mg/dL (60-115); HDL Cholesterol 35 mg/dL; LDL Cholesterol Calculated 121 mg/dl; Potassium 2.3 mmol/L (3.3-5.1); Sodium 141 mmol/L (135-145); Total Protein 5.7 g/dL (6.5-8.0); Triglycerides 151 mg/dL
== END 2021-07-17 09:43 | disposition home or self-care (01) ==
LOC: HO.LAB 09:42
PROVIDERS: PCP Nurse Practitioner; Visit Provider Nurse Practitioner
DX: Z13.220 Encounter for screening for lipoid disorders (principal); Z11.59 Encounter for screening for other viral diseases; R03.0 Elevated blood-pressure reading, without diagnosis of hypertension; R49.0 Dysphonia
CPT/HCPCS: 36415; 80053; 80061; 84443; 85025; 86803

== ENCOUNTER 2021-09-14 13:13 | Outpatient (REF) | payer MEDICAID, SELFPAY ==
[2021-09-14 14:29] LABS: Anion Gap 16 (12-20); Blood Urea Nitrogen 13 mg/dL (9-16); Calcium 8.6 mg/dL (8.4-10.2); Carbon Dioxide 23 mmol/L (22-29); Chloride 102 mmol/L (96-108); Estimated Glomerular Filt Rate > 60; Glucose Random 126 mg/dL (60-115); Potassium 4.5 mmol/L (3.3-5.1); Sodium 136 mmol/L (135-145)
== END 2021-09-14 13:14 | disposition home or self-care (01) ==
LOC: HO.HVNA 13:13
PROVIDERS: Visit Provider Internal Medicine
DX: C34.90 Malignant neoplasm of unspecified part of unspecified bronchus or lung (principal)
CPT/HCPCS: 36415; 80048

== ENCOUNTER → 2024-07-08 12:03 | Outpatient (RCR) | payer MEDICAID, SELFPAY ==
[2021-01-31 13:01] VITALS: BP 129/80; PULSE 83; RESP 14; TEMP 36.6; O2SAT 98; BMI 32.8
--- NOTE | 2021-01-31 13:48 | PM.HEMONCPN ---
Medical Summary - Medical Summary Date of Service: 01/31/21 Chief complaint: Lung mass Medical Summary: Diagnosis: Left pleural based mass, mediastinal adenopathy January 2021 Right lower extremity DVT in November 2019 after 13 hour car ride. Interval History Interval history: Patient referred back to Oncology because of findings of lung mass and mediastinal lymph nodes on CT angiogram. He went to the emergency room on with right-sided chest pain that lasted 3-4 hours prior to presentation. D-dimer was marginally elevated, EKG was normal. He had a CT angiogram which was abnormal and has been referred here. Patient denies any further chest pain, he has not had any cough pleuritic pain or shortness of breath. No fever or chills. No loss of appetite or weight loss. No leg pain or swelling. No headache or dizziness. Review of Systems - Constitutional Reports as per HPI, Reports no additional constitutional complaints - Cardiovascular Reports no additional cardiovascular complaints - Respiratory Reports no additional respiratory complaints - Gastrointestinal Reports no additional gastrointestinal complaints - Musculoskeletal Reports no additional musculoskeletal complaints [facility] Medical History: Medical History (Last Updated 01/31/21 @ 13:51 by Lesly Hernandez MD) DVT (deep venous thrombosis) Mass of left submandibular region Non-Hodgkin lymphoma in remission Thrombosis Surgical History: Surgical History (Last Updated 01/31/21 @ 13:07 by Katrina Ewing) History of partial surgical removal of colon Hx of splenectomy Social History: Social History (Last Updated 01/31/21 @ 13:07 by Katrina Ewing) Alcohol History: Alcohol intake: former Alcohol History Details: Alcohol intake frequency: holiday/special occasion Alcohol type: beer Smoking status: Light tobacco smoker Oncology Screenings - ECOG Performance Status ECOG Performance Status: 0 Home Medications and Allergies Home Medications Medication Instructions Recorded Confirmed Type No Known Home Meds 01/31/21 01/31/21 History Allergies Allergy/AdvReac Type Severity Reaction Status Date / Time No Known Allergies Allergy Unverified 07/27/20 17:03 [No Known Allergies*] Exam Vital signs: Vital Signs Temp 97.9 F 01/31/21 13:01 Pulse 83 01/31/21 13:01 Resp 14 01/31/21 13:01 BP 129/80 01/31/21 13:01 Pulse Ox 98 01/31/21 13:01 Intake & Output 01/30/21 01/31/2121 18:59 06:59 18:59 Other: Weight 106.9 kg Weight in Grams [id number] Weight 106.9 kg Body Mass Index 32.8 - Constitutional Present: no acute distress - Routine HEENT Exam Head: Present: normal inspection Eye: Present: EOMI, PERRL - Routine Neck Exam Present: normal inspection Comments: Well-healed left submandibular scar - Routine Respiratory Exam Present: CTAB - Routine Cardiovascular Exam Cardiovascular: Present: S1, S2 - Routine Abdominal Exam Present: soft. Absent: organomegaly - Routine Extremities Exam Absent: pedal edema Progress Note: A/P (1) Lung mass Status: Acute Assessment and plan: 1. This is a 51-year-old male with history of lymphoma involving neck status post radiotherapy in [place] at age 14 who is now presenting with left pleural based lung mass, hilar/mediastinal lymphadenopathy and few other lung lesions. This is worrisome for malignancy, primary lung cancer versus recurrent lymphoma. Patient had transient right chest pain that has since resolved. He has no other constitutional symptoms or pulmonary symptoms. Blood work today shows normal LDH, CEA levels. He developed a provoked right lower extremity DVT in November 2019 for which he was on anticoagulation for [address] angiogram was negative for pulmonary embolism. He is being scheduled for PET-CT and consultation with CT surgeon for bronchoscopy and biopsy. All this was explained to patient. He agreed to go forth with above recommendations. Follow-up in 2 weeks. - Time Spent With Patient Total time spent is greater than 50% in coordination of care (as documented) at patient's floor/unit and/or counseling patient: 15 - 24 minutes
[2021-01-31 14:36] LABS: Lactate Dehydrogenase 198 U/L (118-273)
[2021-01-31 14:43] LABS: Erythrocyte Sedimentation Rate 5 MM/HR (0-15)
--- NOTE | 2021-01-31 15:00 | MHC.HEMONCMA ---
Patient came in for a consult today for a lung mass, patient states he is doing well. Clinical summary was reviewed and updated. Patient had labs and will have a telehealth visit in 2 weeks with the doctor. He will also see Dr Toussaint this friday at 9am.
--- NOTE | 2021-02-01 09:29 | MHC.HEMONCSW ---
PET SCAN ORDER FAXED TO [facility] FOR 02/09/21.
[2021-02-01 11:47] LABS: Alpha Fetoprotein 2.1 ng/mL (<6.1)
--- NOTE | 2021-02-02 15:24 | HO.HEMONCPA ---
Called [facility] to intiate PA for PET Scan, s/w Loraine ref#[id number] who stated that due to pandemic, has suspended all PA guidelines and that this procedure does not currently require PA due to that reason.
[2021-02-03 13:41] LABS: Beta-2 Microglobulin, Serum 2.32 mg/L (< OR = 2.51)
--- NOTE | 2021-02-12 08:56 | MHC.HEMONCMA ---
Dr Hernandez would like for the patient to have an ultrasound guided biopsy of a lymph node in the inguinal region along with a MRI of the brain. Dr Hernandez is requesting the biopsy be done this week, in which I asked Juliette to get me a STAT PA for this so I can schedule the patient this week. The MRI of the brain was placed in order bladder tier.
--- NOTE | 2021-02-12 09:16 | HO.HEMONCPA ---
The ultrasound guided biopsy of inguinal lymph node does not require PA per Lindsey at [facility]. Call ref#[id number], let RUBENS Herndon know so procedure can be scheduled.
--- NOTE | 2021-02-12 09:28 | PM.HEMONCPN ---
Medical Summary - Medical Summary Date of Service: 02/12/21 Chief complaint: Follow-up Medical Summary: Diagnosis: Small cell lung cancer. Left pleural based mass, mediastinal adenopathy January 2021 Right lower extremity DVT in November 2019 after 13 hour car ride. Interval History Interval history: Patient is here in follow-up. He has been told by process engineering intern about diagnosis of small cell lung cancer. He is here for further recommendations. His mother, brother and extended friends/family are in suburbs of [place] and he is thinking of moving there for his treatment. He would like a referral to [facility] where he received his radiation therapy for lymphoma many years ago. He has no physical complaints today. Review of Systems - Constitutional Reports as per HPI, Reports no additional constitutional complaints PMFSH Medical History: Medical History (Last Updated 02/08/21 @ 22:07 by Kale Izquierdo MD) DVT (deep venous thrombosis) Mass of left submandibular region Non-Hodgkin lymphoma in remission Small cell lung cancer Thrombosis Surgical History: Surgical History (Last Reviewed 02/05/21 @ 10:30 by Mihaela Senior RN) History of partial surgical removal of colon Hx of splenectomy Social History: Social History (Last Updated 01/31/21 @ 13:07 by Katrina Ewing) Alcohol History: Alcohol intake: former Alcohol History Details: Alcohol intake frequency: holiday/special occasion Alcohol type: beer Tobacco History: Smoking Status: Light tobacco smoker Smoking Quit Date: 01/2021 Substance Use History: Use of substances other than those prescribed or required for medical reasons: No Smoking status: Light tobacco smoker Home Medications and Allergies Home Medications Medication Instructions Recorded Confirmed Type No Known Home Meds 01/31/21 02/08/21 History Allergies Allergy/AdvReac Type Severity Reaction Status Date / Time No Known Allergies Allergy Verified 02/08/21 22:04 [No Known Allergies*] Exam Vital signs: Vital Signs Temp 97.9 F 01/31/21 13:01 Pulse 83 01/31/21 13:01 Resp 14 01/31/21 13:01 BP 129/80 01/31/21 13:01 Pulse Ox 98 01/31/21 13:01 Weight 106.9 kg Body Mass Index 32.8 - Constitutional Present: no acute distress - Routine HEENT Exam Head: Present: normal inspection - Routine Neck Exam Present: normal inspection - Routine Respiratory Exam Present: CTAB - Routine Cardiovascular Exam Cardiovascular: Present: S1, S2 - Routine Abdominal Exam Present: soft. Absent: organomegaly - Routine Extremities Exam Absent: pedal edema Data - Labs Labs: 01/31/21 13:56 Alpha Fetoprotein Routine Beta-2 Microglobulin, Serum Routine CEA [Carcinoembryonic Antigen] Routine Erythrocyte Sedimentation Rate Routine Lactate Dehydrogenase Routine Laboratory Last Values ESR 5 MM/HR (0-15) 01/31/21 13:56 Lactate Dehydrogenase 198 U/L (118-273) 01/31/21 13:56 Qdns-2-Icgdpmupebbfr 2.32 mg/L (< OR = 2.51) 01/31/21 13:56 Alpha Fetoprotein 2.1 ng/mL (<6.1) 01/31/21 13:56 Carcinoembryonic Ag 2.20 ng/mL 01/31/21 13:56 Progress Note: A/P (1) Lung mass Status: Acute Assessment and plan: 1. This is a 51-year-old male with small cell lung cancer. He presented with left pleural based lung mass, hilar/mediastinal lymphadenopathy. He has undergone bronchoscopy and biopsy of lung lesion as well as mediastinal lymph nodes. Lymph node at 4 L positive for small cell lung cancer. PET-CT 02/06/2021 showed uptake in left pleural based mass, mediastinal lymph nodes as well as left hilar lymph nodes. Unfortunately they was activity seen in right inguinal lymph node which corresponded to an abnormal lymph node on CT images, activity seen in right cervical region which did not correspond to lymph node on CT images. He is being scheduled for ultrasound-guided biopsy of right inguinal lymph node, brain MRI for staging has been ordered. He understands that he now has to go through extensive treatment. Depending on stage of disease, further recommendations about systemic therapy with without radiation will be made. He plans to move to [place] to be closer to his family and friends. At his request, I have contacted Dr. Ryan's office, [facility] for radiation oncology affiliated with [facility]. He is being referred to Dr. Tyree Garza, medical oncologist with [facility], . 2. He developed a provoked right lower extremity DVT in November 2019 for which he was on anticoagulation for 3 months. All this was explained to patient. He agreed to go forth with above recommendations. - Time Spent With Patient Total time spent is greater than 50% in coordination of care (as documented) at patient's floor/unit and/or counseling patient: 15 - 24 minutes
[2021-02-12 09:32] VITALS: BP 134/68; PULSE 88; RESP 14; TEMP 36.4; O2SAT 99; BMI 31.9
--- NOTE | 2021-02-12 10:43 | MHC.HEMONCMA ---
Patient came in for a follow up to discuss with Dr Hernandez about his options from his biopsy and new diagnosis of lung cancer. Patient states that he is doing well with the news, he is not afraid. Clinical summary was reviewed and updated. Patient would like to have his treatment done in [place], so that is where I will get his consult for. Patient is scheduled for a lymph node biopsy on his right inguinal region, that is scheduled for 02/14/2021 at 9am, he must be NPO for 4 hours before. I am waiting for MRI to call with the date of that. I will call the Radiation Oncologist now to schedule the patient's consult.
--- NOTE | 2021-02-13 09:54 | MHC.HEMONCMA ---
Called and left a voicemail for the office of Dr Ryan to set up a consult date for the patient. I will call back later today to try and get ahold of them.
--- NOTE | 2021-02-15 10:55 | MHC.HEMONCMA ---
Addendum entered by Juanita Perez 02/15/21 10:57: Edwar Little # is [phone] Original Note: Received a message from Edwar Little a nurse at [facility] notifying us of patients appointment with Dr Hyman on 02/16/21 @ 11 am. Pt was notifed by them.
== END | disposition home or self-care (01) ==
LOC: HO.ONC 01-31 12:52
PROVIDERS: Visit Provider Internal Medicine
DX: C34.92 Malignant neoplasm of unspecified part of left bronchus or lung (principal); C77.1 Secondary and unspecified malignant neoplasm of intrathoracic lymph nodes; Z85.72 Personal history of non-Hodgkin lymphomas; Z86.718 Personal history of other venous thrombosis and embolism
CPT/HCPCS: 36415; 82105; 82232; 82378; 83615; 85652; 99214